=== PATIENT | male | born 1980 | race Caucasian/White ===

== ENCOUNTER 2021-01-09 21:29 | Emergency (ER) | payer SELFPAY ==
[2021-01-10] MEDS ORDERED: Proparacaine 0.5% Opth 15 ML BOT ONE (03:01)
[2021-01-10] MEDS ORDERED: Fluorescein Opthalmic Strip ONE (03:58)
== END 2021-01-10 04:09 | disposition home or self-care (01) ==
LOC: ERS 21:29
DX: H10.9 Unspecified conjunctivitis (principal); F17.210 Nicotine dependence, cigarettes, uncomplicated
CPT/HCPCS: 99283

== ENCOUNTER 2021-02-15 02:47 | Emergency (ER) | payer OTHER ==
[2021-02-15] MEDS ORDERED: Ketorolac Tromethamine 30 MG/ML VIAL ONE (04:20)
== END 2021-02-15 04:43 | disposition home or self-care (01) ==
LOC: ERS 02:47
DX: K02.9 Dental caries, unspecified (principal); F17.210 Nicotine dependence, cigarettes, uncomplicated
CPT/HCPCS: 96372; 99281; J1885